=== PATIENT | female | born 1940 | race Caucasian/White ===

== ENCOUNTER 2019-11-12 18:52 | Emergency (ER) | payer MEDICARE, OTHER, MEDICAID ==
--- NOTE | 2019-11-12 19:35 | EDM.PDOC ---
ED HPI GENERAL MEDICAL PROBLEM - General Chief Complaint: General Stated Complaint: COUGH/FEVER/HAS FALLEN TWICE Time Seen by Provider: 11/12/19 19:15 Source of Information: Reports: Patient, Family (Daughter) History Limitations: Reports: Other (Mild dementia that did not impact HPI) - History of Present Illness INITIAL COMMENTS - FREE TEXT/NARRATIVE: Ms. Whittaker is a most pleasant 79-year-old woman with a past medical history significant for Alzheimer dementia, and essential tremor, and frequent urinary tract infections, a resident of [facility] assisted [facility], who is now brought to the ED by her daughter, with concerns because the patient has fallen twice over the past 2 days, although has not injured herself. She is weaker than usual, and she was noted to be shaking when she was walking. She had a temperature of 100.4 degrees about 2 hours ago, and the [facility] staff felt that she sounded congested. The patient has had a cough, but the daughter is not sure for how long. She tells me that her mother often alternates between constipation and diarrhea. No recent rhinorrhea or sneezing, dyspnea, chest pain, palpitations, nausea, vomiting, dysuria or urinary frequency, recent weight gain or weight loss, recent bloody bowel movements or black bowel movements, joint aches, headaches, or rashes. Here in the ED, the patient is found to be hemodynamically stable, afebrile, saturating 93% on room air. She appears to be in no distress whatsoever, and is quite playful and interactive. The patient's PCP is Dr. Angela Winston. She received an influenza vaccine this season. - Related Data Allergies Allergy/AdvReac Type Severity Reaction Status Date / Time amoxicillin [From Augmentin] Allergy Cannot Verified 11/12/19 19:12 Remember bupropion [From Wellbutrin] Allergy Agitation Verified 11/12/19 19:12 ceftriaxone [From Rocephin] Allergy Cannot Verified 11/12/19 19:12 Remember clavulanic acid Allergy Cannot Verified 11/12/19 19:12 [From Augmentin] Remember duloxetine [From Cymbalta] Allergy Cannot Verified 11/12/19 19:12 Remember Iodinated Contrast Media Allergy Cannot Verified 11/12/19 19:12 Remember iodine Allergy Cannot Verified 11/12/19 19:12 Remember niacin Allergy Cannot Verified 11/12/19 19:12 Remember Gfieeiq-Ynb-Ndz Reductase Allergy Cannot Verified 11/12/19 19:12 Inhibitor Remember sulfamethoxazole Allergy Cannot Verified 11/12/19 19:12 [From Bactrim] Remember trimethoprim [From Bactrim] Allergy Cannot Verified 11/12/19 19:12 Remember Past Medical History HEENT History: Reports: Other (See Below) (Dry eyes) Cardiovascular History: Reports: High Cholesterol, Hypertension Genitourinary History: Reports: Chronic Renal Insuffiency Musculoskeletal History: Reports: Osteoporosis, Other (See Below) (Chronic pain of feet and ankles) Neurological History: Reports: Alzheimers Disease, Other (See Below) (Essential tremor) - Past Surgical History HEENT Surgical History: Reports: Cataract Surgery (bilateral) GI Surgical History: Reports: Hernia, Inguinal (right) Female Surgical History: Reports: Hysterectomy (complete) Social & Family History - Tobacco Use Smoking Status *Q: Former Smoker Years of Tobacco use: 64 Packs/Tins Daily: 2 Month/Year Tobacco Last Used: Quit 2018 - Caffeine Use Caffeine Use: Reports: Coffee - Alcohol Use Alcohol Use History: Yes Alcohol Use Frequency: Socially - Recreational Drug Use Recreational Drug Use: No - Living Situation & Occupation Living situation: Reports: , Assisted Living ([facility]) Occupation: Retired ED ROS GENERAL - Review of Systems Review Of Systems: Comprehensive ROS is negative, except as noted in HPI. : Reports: Other (Frequent UTIs) Neurological: Reports: Headache (chronic) ED EXAM, GENERAL - Physical Exam Exam: See Below Exam Limited By: No Limitations General Appearance: Alert, WD/WN, No Apparent Distress Eye Exam: Bilateral Eye: EOMI, Normal Inspection (s/p cataract surgery) Ears: Normal External Exam, Normal Canal, Hearing Grossly Normal, Normal TMs Nose: Normal Inspection, Normal Mucosa, No Blood Throat/Mouth: Normal Inspection, Normal Lips, Normal Teeth, Normal Gums, Normal Oropharynx, Normal Voice, No Airway Compromise Head: Atraumatic, Normocephalic Neck: Normal Inspection, Supple, Non-Tender, Full Range of Motion. No: Lymphadenopathy (L), Lymphadenopathy (R) Respiratory/Chest: No Respiratory Distress, Lungs Clear, Normal Breath Sounds, No Accessory Muscle Use. No: Decreased Breath Sounds, Crackles, Rhonchi, Wheezing, Stridor, Prolonged Expiration Cardiovascular: Normal Peripheral Pulses, Regular Rate, Rhythm, No Edema, No Gallop, No JVD, No Murmur, No Rub Peripheral Pulses: 4+: Radial (L), Radial (R) GI/Abdominal: Normal Bowel Sounds, Soft, Non-Tender, No Organomegaly, No Distention, No Abnormal Bruit, No Mass (Female) Exam: Deferred Rectal (Female) Exam: Deferred Back Exam: Normal Inspection, Full Range of Motion, NT Extremities: Normal Inspection, Normal Range of Motion, No Pedal Edema, Normal Capillary Refill Neurological: Alert, Oriented, Normal Cognition, No Motor/Sensory Deficits Psychiatric: Normal Affect Skin Exam: Warm, Dry, Intact, Normal Color, No Rash EKG INTERPRETATION EKG Date: 11/12/19 Time: 19:42 Rhythm: NSR Rate (Beats/Min): 67 [place]: Normal P-Wave: Present QRS: Normal ST-T: Normal QT: Prolonged (QTc 561 ms) Comparison: NA - No Prior EKG Course - Vital Signs Last Recorded V/S: Last Vital Signs Temp 36.6 C 11/12/19 22:10 Pulse 70 11/12/19 22:10 Resp 22 H 11/12/19 22:10 BP 155/62 H 11/12/19 22:10 Pulse Ox 91 L 11/12/19 22:10 Orthostatic Blood Pressure [ 130/70 Standing] Orthostatic Blood Pressure [ 152/70 Sitting] Orthostatic Blood Pressure [ 145/60 Supine] - Orders/Labs/Meds Orders: Active Orders 24 hr Category Date Time Status EKG Documentation Completion [RC] STAT Care 11/12/19 19:29 Active Orthostatic Vital Signs [RC] STAT Care 11/12/19 19:31 Active Chest 2V [CR] Stat Exams 11/12/19 19:30 Taken CULTURE URINE [RM] Stat Lab 11/12/19 21:01 Ordered Isolation [COMM] Routine Oth 11/12/19 19:32 Ordered Labs: Laboratory Tests 11/12/19 11/12/19 11/12/19 Range/Units 19:55 20:06 20:06 WBC 10.19 H (3.98-10.04) K/mm3 RBC 3.63 L (3.98-5.22) M/mm3 Hgb 12.0 (11.2-15.7) gm/dl Hct 36.6 (34.1-44.9) % MCV 100.8 H (79.4-94.8) fl MCH 33.1 H (25.6-32.2) pg MCHC 32.8 (32.2-35.5) g/dl RDW Std Deviation 49.3 H (36.4-46.3) fL Plt Count 270 (182-369) K/mm3 MPV 9.8 (9.4-12.3) fl Neutrophils % (Manual) 62 H (40-60) % Band Neutrophils % 3 (0-10) % Lymphocytes % (Manual) 16 L (20-40) % Atypical Lymphs % 4 % Monocytes % (Manual) 10 (2-10) % Eosinophils % (Manual) 3 (0.7-5.8) % Basophils % (Manual) 2 H (0.1-1.2) Platelet Estimate Adequate Anisocytosis 1+ slight Macrocytosis 1+ slight RBC Morph Comment Not Reportable Sodium 139 (136-145) mEq/L Potassium 3.3 L (3.5-5.1) mEq/L Chloride 102 (98-107) mEq/L Carbon Dioxide 27 (21-32) mEq/L Anion Gap 13.3 (5-15) BUN 14 (7-18) mg/dL Creatinine 1.2 H (0.55-1.02) mg/dL Est Cr Clr Drug Dosing 36.97 mL/min Estimated GFR (MDRD) 43 (>60) mL/min BUN/Creatinine Ratio 11.7 L (14-18) Glucose 106 (83-115) mg/dL Calcium 8.6 (8.5-10.1) mg/dL Magnesium 1.5 L (1.8-2.4) mg/dl Total Bilirubin 0.8 (0.2-1.0) mg/dL AST 16 (15-37) U/L ALT 19 (14-59) U/L Alkaline Phosphatase 81 (46-116) U/L Troponin I < 0.017 (0.00-0.056) ng/mL Total Protein 7.2 (6.4-8.2) g/dl Albumin 3.4 (3.4-5.0) g/dl Globulin 3.8 gm/dL Albumin/Globulin Ratio 0.9 L (1-2) Urine Color Yellow (Yellow) Urine Appearance Clear (Clear) Urine pH 6.5 (5.0-8.0) Ur Specific [place] 1.025 (1.005-1.030) Urine Protein 1+ H (Negative) Urine Glucose (UA) Negative (Negative) Urine Ketones Trace H (Negative) Urine Occult Blood Negative (Negative) Urine Nitrite Negative (Negative) Urine Bilirubin Negative (Negative) Urine Urobilinogen 1.0 (0.2-1.0) Ur Leukocyte Esterase Negative (Negative) Urine RBC 0-5 (0-5) /hpf Urine WBC 5-10 H (0-5) /hpf Ur Squamous Epith Cells 5-10 H (0-5) /hpf Urine Bacteria Few (FEW) /hpf Urine Mucus Few (FEW) /hpf Meds: Medications Discontinued Medications Generic Name Dose Route Start Last Admin Trade Name Freq PRN Reason Stop Dose Admin Magnesium Sulfate 2 gm/ Premix 50 mls @ 50 mls/hr 11/12/19 20:45 11/12/19 20: 57 IV 11/12/19 21:44 50 mls/hr ONETIME ONE Administration - Re-Assessments/Exams Free Text/Narrative Re-Assessment/Exam: 11/12/19 19:33 The patient looks quite good. She is hemodynamically stable, afebrile, saturating 93% on room air. Her physical exam is unremarkable. I have ordered a work-up that includes blood work, a urinalysis by quick catheter, an influenza swab, a chest x-ray, orthostatics, and an ECG. 11/12/19 19:45 The patient is not orthostatic. 11/12/19 20:43 Two-view chest radiograph reviewed. The cardiac silhouette is within normal limits. No pulmonary vascular congestion. No pleural effusions. No focal infiltrate. No pneumothorax. Mild hyperinflation with bilateral traumatic flattening, consistent with COPD. Thoracolumbar scoliosis noted. Formal read per the Radiologist pending. 11/12/19 20:45 The patient's ECG is unremarkable, with the exception of QTc elongation of 561 ms. Her CBC is remarkable for a WBC count elevated at 10.19, but with only 3% bandemia and the remainder of her CBC being unremarkable. Her CMP is remarkable for potassium slightly depressed at 3.3, and a creatinine slightly elevated at 1.2, with the remainder of her CMP being unremarkable. Her magnesium level is depressed at 1.5. Her troponin is undetectably low. Her urinalysis is occult blood negative with 0-5 RBCs, leukocyte Estrace negative with 5-10 WBCs, nitrite negative with few bacteria, and 5-10 squamous epithelial cells. Her influenza swab is negative. The patient's urinalysis is consistent with contamination, but not with a UTI. I will order a urine culture, but I do not see an indication for starting the patient on an antibiotic at this time. Based on the above, I have ordered a 2 g Mg-rider. 11/12/19 21:54 The Mg-rider has finished infusing. Test results discussed with the patient's daughter - the sound asleep. As above , the only abnormalities found on today's work-up was a significantly prolonged QTc and hypomagnesemia. The patient's prolonged QTc is likely result of one or more medications that she is on. I will refer the patient to her PCP to see which medications may be able to be adjusted. I do not see an indication for hospitalization. Departure - Departure Time of Disposition: 21:56 Disposition: Home, Self-Care 01 Condition: Good Clinical Impression: Prolonged Q-T interval on ECG, Hypomagnesemia - Discharge Information *PRESCRIPTION DRUG MONITORING PROGRAM REVIEWED*: Not Applicable *COPY OF PRESCRIPTION DRUG MONITORING REPORT IN PATIENT ROCCO: Not Applicable Instructions: Hypomagnesemia Referrals: Angela Hull MD [Primary Care Provider] - Forms: ED Department Discharge Additional Instructions: Ms. Whittaker was seen in the emergency room for generalized weakness and shakiness, a low-grade fever, and a cough. Work-up in the ER included blood work, a urinalysis, and influenza swab, a chest x-ray, positional blood pressure checks, and an ECG. Her ECG found a prolonged QTc of 561 ms. This is likely due to one or more medicines that she is on. Please have her ECP, Dr. Flores, review her medications to see which ones might be able to be adjusted. Her blood work found her magnesium level to be low at 1.5. She was given IV magnesium replacement in the ER. The remainder of her work-up was unremarkable. She does not have a urinary tract infection. She does not have pneumonia. She has not suffered a heart attack. She does not have influenza. She has not dehydrated. If any other problems, please do not hesitate to return Ms. Whittaker to the ER. Sepsis Event Note - Evaluation Sepsis Screening Result: No Definite Risk - Focused Exam Vital Signs: Vital Signs Temp Pulse Resp BP Pulse Ox 11/12/19 22:10 36.6 C 70 22 H 155/62 H 91 L 11/12/19 19:05 37.3 C 69 18 147/59 H 93 L Date Exam was Performed: 11/13/19 Time Exam was Performed: 00:32 - My Orders Last 24 Hours: My Active Orders 11/12/19 19:29 EKG Documentation Completion [RC] STAT 11/12/19 19:30 Chest 2V [CR] Stat 11/12/19 19:31 Orthostatic Vital Signs [RC] STAT 11/12/19 19:32 Isolation [COMM] Routine 11/12/19 21:01 CULTURE URINE [RM] Stat - Assessment/Plan Last 24 Hours: My Active Orders 11/12/19 19:29 EKG Documentation Completion [RC] STAT 11/12/19 19:30 Chest 2V [CR] Stat 11/12/19 19:31 Orthostatic Vital Signs [RC] STAT 11/12/19 19:32 Isolation [COMM] Routine 11/12/19 21:01 CULTURE URINE [RM] Stat
[2019-11-12] MEDS ORDERED: Magnesium Sulfate/Water 2 GM in Premix Bag 1 BAG IV ONE (20:45)
--- NOTE | 2019-11-14 07:39 | CR ---
Chest: 2 views of the chest were obtained. Comparison: No prior chest imaging is available. Heart size and mediastinum are normal. Scoliosis is noted within the spine. Surgical clips are seen within the upper abdomen. Bony structures are osteopenic. Lungs show no acute parenchymal change. Impression: 1. Findings as noted above. 2. Nothing acute is appreciated on 2 view chest x-ray. Diagnostic code #2 This report was dictated in MDT
== END 2019-11-12 22:14 | disposition home or self-care (01) ==
LOC: JD.ED 18:52
DX: E83.42 Hypomagnesemia (principal); R94.31 Abnormal electrocardiogram [ECG] [EKG]; I12.9 Hypertensive chronic kidney disease with stage 1 through stage 4 chronic kidney disease, or unspecified chronic kidney disease; N18.9 Chronic kidney disease, unspecified; Z88.8 Allergy status to other drugs, medicaments and biological substances; Z88.2 Allergy status to sulfonamides; Z88.1 Allergy status to other antibiotic agents; Z87.891 Personal history of nicotine dependence
CPT/HCPCS: 36415; 71046; 80053; 81001; 83735; 84484; 85007; 85027; 87086; 87804; 93005; 96365; 99285; J3475; 93010; 99284

== ENCOUNTER 2020-01-19 19:40 | Emergency (ER) | payer MEDICARE, OTHER, MEDICAID ==
--- NOTE | 2020-01-19 20:20 | EDM.PDOC ---
ED HPI GENERAL MEDICAL PROBLEM - General Chief Complaint: Upper Extremity Injury/Pain Stated Complaint: FELL AND INJURED RIGHT WRIST Time Seen by Provider: 01/19/20 19:55 Source of Information: Reports: Patient History Limitations: Reports: No Limitations - History of Present Illness INITIAL COMMENTS - FREE TEXT/NARRATIVE: Patient is a 79-year-old female who was brought into the emergency department by [facility] with complaints of pain to her right wrist. Per report from the retirement, patient was found sitting on the floor in the bathroom with complaints of pain to her right wrist. Patient has dementia and does not remember the events leading up to the fall or after the fall. She is not on any blood thinners. She was able to walk well after the fall. She denies pain anywhere other than to her wrist. She presents to the ER with a cardboard and Coban splint applied by the retirement. Other Treatments FINISHED CIGAR [employer]ER: unsure Right Wrist Pain Score (Numeric/FACES): 8 - Related Data Allergies Allergy/AdvReac Type Severity Reaction Status Date / Time amoxicillin [From Augmentin] Allergy Severe Cannot Verified 01/19/20 20:03 Remember bupropion [From Wellbutrin] Allergy Severe Agitation Verified 01/19/20 20:03 ceftriaxone [From Rocephin] Allergy Severe Cannot Verified 01/19/20 20:03 Remember clavulanic acid Allergy Severe Cannot Verified 01/19/20 20:03 [From Augmentin] Remember duloxetine [From Cymbalta] Allergy Severe Cannot Verified 01/19/20 20:03 Remember Iodinated Contrast Media Allergy Severe Cannot Verified 01/19/20 20:03 Remember iodine Allergy Severe Cannot Verified 01/19/20 20:03 Remember niacin Allergy Severe Cannot Verified 01/19/20 20:03 Remember Gohmrhf-Iug-Tfd Reductase Allergy Severe Cannot Verified 01/19/20 20:03 Inhibitor Remember sulfamethoxazole Allergy Severe Cannot Verified 01/19/20 20:03 [From Bactrim] Remember trimethoprim [From Bactrim] Allergy Cannot Verified 11/12/19 19:12 Remember Past Medical History HEENT History: Reports: Other (See Below) Cardiovascular History: Reports: High Cholesterol, Hypertension Genitourinary History: Reports: Chronic Renal Insuffiency Musculoskeletal History: Reports: Osteoporosis Other Musculoskeletal History: chronic feet/ankle pain Neurological History: Reports: Alzheimers Disease, Other (See Below) - Past Surgical History HEENT Surgical History: Reports: Cataract Surgery GI Surgical History: Reports: Hernia, Inguinal Female Surgical History: Reports: Hysterectomy Social & Family History - Tobacco Use Smoking Status *Q: Never Smoker - Caffeine Use Caffeine Use: Reports: Coffee, Soda, Tea - Recreational Drug Use Recreational Drug Use: No - Living Situation & Occupation Living situation: Reports: , Assisted Living ([place]) Occupation: Retired Review of Systems - Review of Systems Review Of Systems: Comprehensive ROS is negative, except as noted in HPI. ED EXAM, GENERAL - Physical Exam Exam: See Below Exam Limited By: No Limitations General Appearance: Alert, WD/WN, No Apparent Distress Eye Exam: Bilateral Eye: Normal Inspection, PERRL Head: Atraumatic, Normocephalic Neck: Normal Inspection, Supple, Non-Tender, Full Range of Motion Respiratory/Chest: No Respiratory Distress, Lungs Clear, Normal Breath Sounds, No Accessory Muscle Use, Chest Non-Tender Cardiovascular: Normal Peripheral Pulses, Regular Rate, Rhythm, No Edema, No Gallop, No JVD, No Murmur, No Rub GI/Abdominal: Normal Bowel Sounds, Soft, Non-Tender, No Organomegaly, No Distention, No Abnormal Bruit, No Mass Back Exam: Normal Inspection, Full Range of Motion, NT Extremities: Normal Inspection, Normal Range of Motion, No Pedal Edema, Normal Capillary Refill, Other (Pain with movement or touch to the right wrist. No obvious deformity or swelling.) Neurological: Alert, Oriented, CN II-XII Intact, Normal Cognition, Normal Gait, Normal Reflexes, No Motor/Sensory Deficits Psychiatric: Normal Affect, Normal Mood Skin Exam: Warm, Dry, Intact, Normal Color, No Rash Course - Vital Signs Last Recorded V/S: Last Vital Signs Temp 97.8 F 01/19/20 19:56 Pulse 68 01/19/20 19:56 Resp 24 H 01/19/20 19:56 BP 161/98 H 01/19/20 19:56 Pulse Ox - Orders/Labs/Meds Orders: Active Orders 24 hr Category Date Time Status Wrist Comp Min 3V Rt [CR] Stat Exams 01/19/20 20:12 Taken - Re-Assessments/Exams Free Text/Narrative Re-Assessment/Exam: Head to toe exam was completed on the patient. She has no areas of tenderness, ecchymosis, or edema other than to her right wrist. Her neurologic exam is normal. She is not on blood thinners. She has been able to ambulate without difficulty since the fall. She has no pain in either of her hips. I have ordered an x-ray of the right wrist. 01/19/20 20:34 X-ray of the right wrist shows a distal fracture of the radius. Patient was placed in a custom, Ortho-Glass short arm splint. Recommend that she follow-up with Dr. Robertson at his next available appointment. Discharge instructions as documented. Departure - Departure Time of Disposition: 20:46 Disposition: Home, Self-Care 01 Condition: Good Clinical Impression: Fracture of radius Qualifiers: Encounter type: initial encounter Radius location: distal Fracture type: closed Fracture morphology: unspecified fracture morphology Laterality: right Qualified Code(s): S52.501A - Unspecified fracture of the lower end of right radius, initial encounter for closed fracture - Discharge Information *PRESCRIPTION DRUG MONITORING PROGRAM REVIEWED*: No *COPY OF PRESCRIPTION DRUG MONITORING REPORT IN PATIENT ROCCO: No Instructions: Wrist Fracture Treated With Immobilization, [id number] Referrals: Madan Kirk MD [Primary Care Provider] - Forms: ED Department Discharge Additional Instructions: Farideh was seen in the emergency department tonight for right wrist pain after falling. X-rays were completed and showed that she has a fracture of her distal radius. An Ortho-Glass splint has been applied. This should be left in place till she is evaluated by orthopedics. Recommend that you call Dr. Robertson's office first thing tomorrow morning to set up an appointment. The number to schedule with him as listed below. You may ice through the splint for 20 minutes every 2 hours. She may use Tylenol as needed for discomfort. Recommend that the wrist be elevated when at rest. If you should experience any symptoms of concern, please not hesitate to return to the emergency department. Sepsis Event Note - Evaluation Sepsis Screening Result: No Definite Risk - Focused Exam Vital Signs: Vital Signs Temp Pulse Resp BP 01/19/20 19:56 97.8 F 68 24 H 161/98 H Date Exam was Performed: 01/19/20 Time Exam was Performed: 20:48 - My Orders Last 24 Hours: My Active Orders 01/19/20 20:12 Wrist Comp Min 3V Rt [CR] Stat - Assessment/Plan Last 24 Hours: My Active Orders 01/19/20 20:12 Wrist Comp Min 3V Rt [CR] Stat
--- NOTE | 2020-01-19 21:29 | CR ---
Right wrist: 4 views of the right wrist were obtained. Distal radial fracture is seen with slight posterior impaction causing slight dorsal tilt of the distal radial articular margin. Small displaced fracture involving the ulnar styloid process is noted. Osteopenia is seen. Severe joint space narrowing is noted between the navicular bone and trapezium. Fairly severe degenerative change also noted within the CMC joint of the thumb. Impression: 1. Distal radial fracture and ulnar styloid avulsion fracture. 2. Degenerative change and osteopenia. Diagnostic code #3 This report was dictated in MDT
== END 2020-01-19 21:00 | disposition home or self-care (01) ==
LOC: JD.ED 19:40
DX: S52.501A Unspecified fracture of the lower end of right radius, initial encounter for closed fracture (principal); S52.611A Displaced fracture of right ulna styloid process, initial encounter for closed fracture; G30.9 Alzheimer's disease, unspecified; F02.80 Dementia in other diseases classified elsewhere, unspecified severity, without behavioral disturbance, psychotic disturbance, mood disturbance, and anxiety; Z88.1 Allergy status to other antibiotic agents; Z88.8 Allergy status to other drugs, medicaments and biological substances; Z91.041 Radiographic dye allergy status; Z91.09 Other allergy status, other than to drugs and biological substances; Z88.2 Allergy status to sulfonamides; W19.XXXA Unspecified fall, initial encounter; Y92.129 Unspecified place in nursing home as the place of occurrence of the external cause
CPT/HCPCS: 29125; 73110-26-RT; 73110-RT; 99282; 99283-25